=== PATIENT | male | born 1955 | race Caucasian/White ===

== ENCOUNTER 2018-07-17 16:41 | Outpatient (REF) | payer OTHER, SELFPAY ==
[2018-07-17 21:37] LABS: COMMENT (LAB VIEW ONLY) 96.89 mg/dL; Microalb ug/mg Crea 11.1 ug/mg Cr
== END 2018-07-17 17:01 ==
LOC: NCHCN 16:41
PROVIDERS: PCP Nurse Practitioner Family; Visit Provider Nurse Practitioner Family
DX: E11.9 Type 2 diabetes mellitus without complications (principal)
CPT/HCPCS: 82043; 82570

== ENCOUNTER 2019-01-09 21:39 | Outpatient (REF) | payer OTHER, SELFPAY ==
[2019-01-09 21:33] LABS: Anion Gap 9.6 mmol/L (3-11); BUN 11 mg/dL (7-18); CO2 26.4 mmol/L (21.0-32.0); CREATININE 1.01 mg/dL (0.70-1.30); Calcium 9.2 mg/dL (8.5-10.1); Chloride 103 mmol/L (98-107); Glucose 107 mg/dL (70-100); Potassium 4.9 mmol/L (3.5-5.1); Sodium 139 mmol/L (136-145)
== END 2019-01-09 21:59 ==
LOC: NCHCN 21:39
PROVIDERS: PCP Nurse Practitioner Family; Visit Provider Nurse Practitioner Family
DX: E11.9 Type 2 diabetes mellitus without complications (principal); I10 Essential (primary) hypertension
CPT/HCPCS: 80048

== ENCOUNTER 2019-07-10 23:22 | Outpatient (REF) | payer OTHER, SELFPAY ==
[2019-07-10 23:28] LABS: COMMENT (LAB VIEW ONLY) 60.42 mg/dL; Microalb ug/mg Crea 24.8 ug/mg Cr
== END 2019-07-10 23:42 ==
LOC: NCHCN 23:22
PROVIDERS: PCP Nurse Practitioner Family; Visit Provider Nurse Practitioner Family
DX: E11.9 Type 2 diabetes mellitus without complications (principal)
CPT/HCPCS: 82043; 82570

== ENCOUNTER 2019-07-23 22:13 | Outpatient (REF) | payer OTHER, SELFPAY ==
[2019-07-23 21:34] LABS: Abs Immature Grans 0.03 k/cumm (0.0-0.09); Absolute Basophil Count 0.03 k/cumm (0.0-0.2); Absolute Eosinophil Count 0.33 k/cumm (0.0-0.7); Absolute Monocyte Count 0.52 k/cumm (0.11-0.7); Absolute Neutrophil Count 6.01 k/cumm (1.2-6.7); Basophils % 0.4; Eosinophils % 3.9; HCT 44.6 % (40.0-50.0); HGB 14.4 g/dL (13.5-17.5); Immature Grans % 0.4; Lymphocytes % 17.8; Mean Corp. HGB Concentration 32.3 g/dL (32.0-36.0); Mean Corpuscular Hemoglobin 31.1 pg (27.0-33.0); Mean Corpuscular Volume 96.3 fL (80-95); Mean Platelet Volume 9.9 fL (8.0-11.0); Monocytes % 6.2; Neutrophils % 71.3; Platelet Count 330 x1000/uL (130-400); RBC 4.63 m/cumm (4.50-6.00); RBC Distribution Width 13.8 % (11.8-14.1); White Blood Cell Count 8.42 k/cumm (4.4-10.8)
[2019-07-23 21:52] LABS: ALT 31 U/L (16-63); AST 12 U/L (15-37); Albumin 3.8 g/dL (3.4-5.0); Alkaline Phosphatase 84 U/L (46-116); Anion Gap 7.7 mmol/L (3-11); BUN 13 mg/dL (7-18); Bilirubin, Total 0.3 mg/dL (0.2-1.0); CO2 26.3 mmol/L (21.0-32.0); CREATININE 1.06 mg/dL (0.70-1.30); Calcium 9.2 mg/dL (8.5-10.1); Chloride 105 mmol/L (98-107); Glucose 106 mg/dL (70-100); Potassium 5.4 mmol/L (3.5-5.1); Sodium 139 mmol/L (136-145); TSH (W/Ref FT4) 2.54 uIU/mL (0.36-3.74); Total Protein 7.4 g/dL (6.4-8.2); Uric Acid 6.6 mg/dL (3.5-7.2)
== END 2019-07-23 22:33 ==
LOC: NCHCN 22:13
PROVIDERS: PCP Nurse Practitioner Family; Visit Provider Family Medicine
DX: M79.675 Pain in left toe(s) (principal); L65.9 Nonscarring hair loss, unspecified; L53.8 Other specified erythematous conditions
CPT/HCPCS: 80053; 84443; 84550; 85025

== ENCOUNTER 2019-10-29 14:33 | Outpatient (REF) | payer OTHER, SELFPAY ==
[2019-10-29 22:45] LABS: ALT 26 U/L (16-63); AST 13 U/L (15-37); Albumin 3.9 g/dL (3.4-5.0); Alkaline Phosphatase 83 U/L (46-116); Anion Gap 9.7 mmol/L (3-11); BUN 16 mg/dL (7-18); Bilirubin, Total 0.3 mg/dL (0.2-1.0); CO2 26.3 mmol/L (21.0-32.0); CREATININE 1.03 mg/dL (0.70-1.30); Calcium 8.6 mg/dL (8.5-10.1); Chloride 104 mmol/L (98-107); Glucose 92 mg/dL (74-106); Potassium 4.6 mmol/L (3.5-5.1); Sodium 140 mmol/L (136-145); Total Protein 7.4 g/dL (6.4-8.2)
== END 2019-10-29 14:53 ==
LOC: NCHCN 14:33
PROVIDERS: PCP Nurse Practitioner Family; Visit Provider Nurse Practitioner Family
DX: E11.9 Type 2 diabetes mellitus without complications (principal); I10 Essential (primary) hypertension; E78.6 Lipoprotein deficiency; E66.3 Overweight
CPT/HCPCS: 80053

== ENCOUNTER 2020-05-06 13:48 | Outpatient (REF) | payer OTHER, SELFPAY ==
[2020-05-06 22:21] LABS: ALT 27 U/L (16-63); AST 11 U/L (15-37); Albumin 3.8 g/dL (3.4-5.0); Alkaline Phosphatase 82 U/L (46-116); Anion Gap 8.1 mmol/L (3-11); BUN 16 mg/dL (7-18); Bilirubin, Total 0.3 mg/dL (0.2-1.0); CO2 27.9 mmol/L (21.0-32.0); CREATININE 1.06 mg/dL (0.70-1.30); Calcium 8.9 mg/dL (8.5-10.1); Calculated LDL 77 mg/dL (<100); Chloride 104 mmol/L (98-107); Cholesterol 136 mg/dL (<200); Glucose 159 mg/dL (74-106); HDL Cholesterol 27 mg/dL (40-60); Potassium 4.7 mmol/L (3.5-5.1); Sodium 140 mmol/L (136-145); Total Protein 7.3 g/dL (6.4-8.2); Triglyceride 162 mg/dL (<150)
[2020-05-08 10:18] LABS: HIV-1/2 Ag & Ab Screen Negative (Negative)
[2020-05-08 10:29] LABS: Hepatitis C Ab w Rflx HCV PCR Negative (Negative)
== END 2020-05-06 14:08 ==
LOC: NCHCN 13:48
PROVIDERS: PCP Nurse Practitioner Family; Visit Provider Nurse Practitioner Family
DX: E11.9 Type 2 diabetes mellitus without complications (principal); I10 Essential (primary) hypertension; I70.0 Atherosclerosis of aorta; Z11.4 Encounter for screening for human immunodeficiency virus [HIV]; Z11.59 Encounter for screening for other viral diseases
CPT/HCPCS: 80053; 80061; 86803; 87389

== ENCOUNTER 2020-10-27 14:47 | Outpatient (REF) | payer OTHER, SELFPAY ==
[2020-10-27 21:27] LABS: COMMENT (LAB VIEW ONLY) 62.96 mg/dL; Microalb ug/mg Crea 25.6 ug/mg Cr
== END 2020-10-27 15:07 ==
LOC: NCHCN 14:47
PROVIDERS: PCP Nurse Practitioner Family; Visit Provider Nurse Practitioner Family
DX: E11.9 Type 2 diabetes mellitus without complications (principal)
CPT/HCPCS: 82043; 82570

== ENCOUNTER 2021-05-04 10:49 | Outpatient (REF) | payer OTHER, SELFPAY ==
[2021-05-04 14:19] LABS: ALT 24 U/L (16-63); AST 17 U/L (15-37); Albumin 3.8 g/dL (3.4-5.0); Alkaline Phosphatase 77 U/L (46-116); Anion Gap 9.2 mmol/L (3-11); BUN 19 mg/dL (7-18); Bilirubin, Total 0.2 mg/dL (0.2-1.0); CO2 26.8 mmol/L (21.0-32.0); CREATININE 1.1 mg/dL (0.70-1.30); Calcium 9.1 mg/dL (8.5-10.1); Calculated LDL 68 mg/dL (<100); Chloride 104 mmol/L (98-107); Cholesterol 146 mg/dL (<200); Glucose 146 mg/dL (74-106); HDL Cholesterol 29 mg/dL (40-60); Potassium 4.7 mmol/L (3.5-5.1); Sodium 140 mmol/L (136-145); Total Protein 7.4 g/dL (6.4-8.2); Triglyceride 247 mg/dL (<150)
== END 2021-05-04 10:50 | disposition home or self-care (01) ==
LOC: NCHCN 10:49
PROVIDERS: PCP Nurse Practitioner Family; Visit Provider Nurse Practitioner Family
DX: E88.81 Metabolic syndrome and other insulin resistance (principal); E11.9 Type 2 diabetes mellitus without complications; I10 Essential (primary) hypertension; E78.5 Hyperlipidemia, unspecified
CPT/HCPCS: 80053; 80061

== ENCOUNTER 2022-03-23 14:46 | Outpatient (REF) | payer OTHER, SELFPAY ==
[2022-03-23 15:19] LABS: ALT 25 U/L (16-63); AST 17 U/L (15-37); Albumin 3.7 g/dL (3.4-5.0); Alkaline Phosphatase 76 U/L (46-116); Anion Gap 3.5 mmol/L (3-11); BUN 18 mg/dL (7-18); Bilirubin, Total 0.3 mg/dL (0.2-1.0); CO2 28.5 mmol/L (21.0-32.0); Calcium 9.1 mg/dL (8.5-10.1); Calculated LDL 63 mg/dL (<100); Chloride 102 mmol/L (98-107); Cholesterol 119 mg/dL (<200); Glucose 115 mg/dL (74-106); HDL Cholesterol 34 mg/dL (40-60); Sodium 134 mmol/L (136-145); Total Protein 7.9 g/dL (6.4-8.2); Triglyceride 110 mg/dL (<150)
[2022-03-23 16:17] LABS: COMMENT (LAB VIEW ONLY) 33.53 mg/dL; Microalb ug/mg Crea 22.1 ug/mg Cr
== END 2022-03-23 14:47 | disposition home or self-care (01) ==
LOC: NCHCN 14:46
PROVIDERS: PCP Nurse Practitioner Family; Visit Provider Nurse Practitioner Family
DX: E11.9 Type 2 diabetes mellitus without complications (principal); Z00.00 Encounter for general adult medical examination without abnormal findings; I10 Essential (primary) hypertension; E78.6 Lipoprotein deficiency; I70.0 Atherosclerosis of aorta; J44.9 Chronic obstructive pulmonary disease, unspecified
CPT/HCPCS: 80053; 80061; 82043; 82570

== ENCOUNTER 2023-07-27 16:36 | Outpatient (REF) | payer MEDICARE, OTHER, SELFPAY ==
--- OUTSIDE RECORDS SUMMARY | 2023-07-27 16:42 | XMS_ITS | CCD ---
Author Name Unknown Address [address] [place] [address] [phone] Organization Unknown Address [address] [place] [address] [phone] Care Team Providers Care Telecommunications Engineer Name Role Phone CHARLIE CARRILLO Wilma Attending Physician [phone] Vital Signs Unknown or Not Available. Allergies Allergy Code Allergy Type Reaction Status NKA - NO KNOWN ALLERGIES 0 Drug allergy Active Procedures Procedure Code Procedure Type Date Colsc Flx w/[place] [address] CPT 03/17/2023 History of Immunizations Unknown or Not Available. Problems Problem Code Start Date Resolved Date Status Syncope [id number] Active Results Unknown or Not Available. Active Medications Medication Code Dose Units Frequency Route Modificatio n Start Date/Time Atorvastatin Calcium 40MG Oral Tablet 391167 40 MILLIGRAMS EVERY EVENING ORAL 04/25/2019 11:15 Prescription Detail TAKE 40 MILLIGRAMS ORAL EVERY EVENING Lisinopril 10MG Oral Tablet 438208 10 MILLIGRAMS DAILY ORAL 9 11:15 Prescription Detail TAKE 10 MILLIGRAMS ORAL DAILY metFORMIN HCl 850MG Oral Tablet [id number] 850 MILLIGRAMS DAILY ORAL 9 11:15 Prescription Detail TAKE 850 MILLIGRAMS ORAL DAILY SPIRIVA 18MCG INHALATION CAPSULE 0 1 DAILY INHALATION 9 11:15 Prescription Detail 1 INHALATION DAILY Medications Administered During Visit Unknown or Not Available. Encounters Encounter Diagnosis Diagnosis Code Start Date Encounter for screening for malignant neoplasm o f colon [id number] 03/17/2023 Social History Smoking Status Code Start Date End Date Former smoker [id number] Patient Decision Aids Unknown or Not Available. Discharge Instructions You were admitted to [facility] on 03/17/2023 11:42 with a principal diagnosis of Encounter for screening for malignant neoplasm of colon You had the following procedures done:Colsc Flx w/Rmvl Of Tumor Polyp Lesion Snare Tq You were discharged from [facility] on 03/17/2023 15:05 Should you have any questions prior to discharge, please contact a member of your healthcare team. If you have left the hospital and have any questions, please contact your primary care physician. Chief Complaint and Reason For Visit Unknown or Not Available. Function Status Unknown or Not Available. Plan of Care Unknown or Not Available. Referral/Transition of Care Unknown or Not Available.
[2023-07-27 21:44] LABS: COMMENT (LAB VIEW ONLY) 58.74 mg/dL; Microalb ug/mg Crea 35.2 ug/mg Cr
[2023-07-27 22:01] LABS: Anion Gap 12.9 mmol/L (3-11); BUN 18 mg/dL (7-18); CO2 25.1 mmol/L (21.0-32.0); CREATININE 1.2 mg/dL (0.70-1.30); Calcium 9.9 mg/dL (8.5-10.1); Calculated LDL 92 mg/dL (<100); Chloride 100 mmol/L (98-107); Cholesterol 150 mg/dL (<200); Glucose 101 mg/dL (74-106); HDL Cholesterol 35 mg/dL (40-60); Potassium 4.6 mmol/L (3.5-5.1); Sodium 138 mmol/L (136-145); Triglyceride 119 mg/dL (<150); Vitamin B12 149 pg/mL (193-986)
[2023-07-28 20:17] LABS: PSA, Screening 1.4 ng/mL (<=4.5)
== END 2023-07-27 16:37 | disposition home or self-care (01) ==
LOC: NCHCN 16:36
PROVIDERS: PCP Nurse Practitioner Family; Visit Provider Nurse Practitioner Family
DX: I10 Essential (primary) hypertension (principal); E11.9 Type 2 diabetes mellitus without complications; E78.6 Lipoprotein deficiency; Z02.89 Encounter for other administrative examinations; Z12.5 Encounter for screening for malignant neoplasm of prostate
CPT/HCPCS: 80048; 80061; 84153; 82043; 82570; 82607; 83735

== ENCOUNTER 2024-05-14 19:51 | Outpatient (REF) | payer MEDICARE, OTHER, SELFPAY ==
[2024-05-14 16:10] LABS: HCT 41.3 % (40.0-50.0); HGB 13.7 g/dL (13.5-17.5); MCH 31.6 pg (27.0-33.0); MCHC 33.2 % (32.0-36.0); MCV 95 fL (80-95); Platelet Count 264 10^3/uL (130-400); RBC 4.34 10^6/uL (4.36-5.78); RDW 12.7 % (11.8-14.1); RDW-SD 45.1 fL; WBC 8.69 10^3/uL (4.4-10.8)
[2024-05-14 17:00] LABS: ALT 26 U/L (16-63); AST 14 U/L (15-37); Albumin 3.8 g/dL (3.4-5.0); Alkaline Phosphatase 82 U/L (46-116); Anion Gap 9.1 mmol/L (3-11); BUN 17 mg/dL (7-18); Bilirubin, Total 0.33 mg/dL (0.2-1.0); CO2 24.9 mmol/L (21.0-32.0); CREATININE 1.2 mg/dL (0.70-1.30); Calcium 9.5 mg/dL (8.5-10.1); Calculated LDL 70 mg/dL (<100); Chloride 102 mmol/L (98-107); Cholesterol 137 mg/dL (<200); Glucose 145 mg/dL (74-106); HDL Cholesterol 36 mg/dL (40-60); Potassium 4.8 mmol/L (3.5-5.1); Sodium 136 mmol/L (136-145); Total Protein 7.9 g/dL (6.4-8.2); Triglyceride 157 mg/dL (<150); Vitamin B12 160 pg/mL (193-986)
== END 2024-05-14 19:52 | disposition home or self-care (01) ==
LOC: NCHCN 19:51
PROVIDERS: PCP Nurse Practitioner Family; Visit Provider Nurse Practitioner Family
DX: E11.9 Type 2 diabetes mellitus without complications (principal)
CPT/HCPCS: 80053; 80061; 85027; 82607

== ENCOUNTER 2025-01-24 07:52 | Outpatient (REF) | payer MEDICARE, SELFPAY ==
[2025-01-24 15:29] LABS: HCT 44.7 % (40.0-50.0); HGB 14.3 g/dL (13.5-17.5); MCH 31.3 pg (27.0-33.0); MCV 98 fL (80-95); MPV 10.2 fL (8.0-11.0); Platelet Count 251 10^3/uL (130-400); RBC 4.57 10^6/uL (4.36-5.78); RDW 12.5 % (11.8-14.1); RDW-SD 45.2 fL; WBC 9.53 10^3/uL (4.4-10.8)
[2025-01-24 16:11] LABS: Vitamin B12 450 pg/mL (193-986)
== END 2025-01-24 07:53 | disposition home or self-care (01) ==
LOC: NCHCN 07:52
PROVIDERS: PCP Nurse Practitioner Family; Visit Provider Nurse Practitioner Family
DX: R79.89 Other specified abnormal findings of blood chemistry (principal)
CPT/HCPCS: 85027; 82607

== ENCOUNTER 2025-01-29 13:02 | Outpatient (REF) | payer MEDICARE, SELFPAY ==
[2025-01-29 16:52] LABS: Microalb ug/mg Crea 41.7 ug/mg Cr
[2025-01-29 22:51] LABS: PSA, Screening 1.5 ng/mL (<=4.5)
== END 2025-01-29 13:03 | disposition home or self-care (01) ==
LOC: NCHCN 13:02
PROVIDERS: PCP Nurse Practitioner Family; Visit Provider Nurse Practitioner Family
DX: Z12.5 Encounter for screening for malignant neoplasm of prostate (principal); E11.9 Type 2 diabetes mellitus without complications
CPT/HCPCS: 84153; 82043; 82570